=== PATIENT | female | born 1945 | race Caucasian/White ===

== ENCOUNTER 2024-05-26 13:28 | Emergency (ER) | payer MEDICARE, OTHER ==
[~2024-05-26] VITALS: Ht 162.6 cm; Wt 65.8 kg
[2024-05-26] MEDS: acetaMINOPHEN 500 MG TABLET PO ONE (13:53)
--- NOTE | 2024-05-26 14:55 | HMCIMG ---
Exam Type: FOREARM 2VWS LT, HAND 3+VWS LT Clinical Information: Pain Comparison: None Findings: There are fractures of the distal radius as well as ulnar styloid process both with dorsal angulation. No other fractures are seen. Degenerative changes of the interphalangeal joints of the hand are seen. IMPRESSION: Wrist fracture.
--- NOTE | 2024-05-26 15:06 | ERN ---
General Chief Complaint: Wrist Pain/Injury Stated Complaint: WRIST PAIN Time Seen by MD: 13:30 Time Seen by Midlevel: 13:32 Source: patient History of Present Illness Initial Comments 78-year-old female presents to the ED due to left wrist pain. Patient reports she was playing pickleball and fell. Denies any head injuries, or further trauma. PMHx HTN, hypercholesterolemia Allergies: Coded Allergies: shellfish derived (Unverified Allergy, Unknown, ANAPHYLAXIS, 05/26/24) Past Medical History Past Medical History: High Cholesterol, Hypertension Past Surgical History: None ROS Dictation Constitutional: Negative for fever,chills, and weight loss Eyes: Negative for injury, pain,redness, and discharge ENT: Negative for injury,pain or swelling Cardiovascular: Negative for chest pain, palpitations, and edema Respiratory: Negative for shortness of breath, cough, and wheezing, Abdomen/GI: Negative for abdominal pain, nausea, vomiting, diarrhea, and constipation Back: Negative for injury and pain : Negative for painful urination, bleeding or discharge MS/Extremity: Positive for left wrist pain Negative for injury and deformity Skin: Negative for rash, and discoloration Neuro: Negative for headache, weakness, numbness, tingling, and seizure Psych: Negative for suicide ideation, homicidal ideation, and hallucinations Physical Exam Physical Exam Dictation General: awake, alert, no acute distress Head/Face: Normocephalic, atraumatic Eyes: PERRL, EOMI, normal conjunctiva Cardiovascular: Normal peripheral perfusion Skin: Warm, dry, normal turgor, no rash MS/Extremity: Pulses equal, no cyanosis, neurovascular intact, limited range of motion of the left wrist restricted by pain, tenderness on palpation of the left wrist Neuro: COAx4, GCS 15, normal sensory, normal gait Psych: Normal behavior, mood, and affect normal Results EKG/XRAY/US/CT/MRI X-RAY Comment REASON: Pain ORDERING PHYSICIAN: JANEEN RIZZO PROCEDURE: HAND 3V LT - HAND 3+VWS LT Exam Type: FOREARM 2VWS LT, HAND 3+VWS LT Clinical Information: Pain Comparison: None Findings: There are fractures of the distal radius as well as ulnar styloid process both with dorsal angulation. No other fractures are seen. Degenerative changes of the interphalangeal joints of the hand are seen. IMPRESSION: Wrist fracture. REASON: Pain ORDERING PHYSICIAN: JANEEN RIZZO PROCEDURE: FORARML - FOREARM 2VWS LT Exam Type: FOREARM 2VWS LT, HAND 3+VWS LT Clinical Information: Pain Comparison: None Findings: There are fractures of the distal radius as well as ulnar styloid process both with dorsal angulation. No other fractures are seen. Degenerative changes of the interphalangeal joints of the hand are seen. IMPRESSION: Wrist fracture. MDM MDM: Differential diagnosis: Fracture, strain, sprain, dislocation Rationale: 78-year-old female presents to the ED due to left wrist pain. Patient reports she was playing pickleball and fell. Denies any head injuries, or further trauma. PMHx HTN, hypercholesterolemia Per physical examination patient has limited range of motion of the left wrist restricted by pain, tenderness to palpation, neurovascularly intact. X-rays of the left forearm indicates fracture of the distal radius and ulnar styloid with dorsal angulation. Patient was placed on a volar splint and referred to follow up with ortho. Advised to follow up with PCP. Return to the ED if any worsening symptoms. Patient verbalized understanding. Stable for discharge. There are no social concerns with this patient. I independently interpreted the test that were performed, results were reviewed by me and considered findings on radiology if ordered. Medical management and examination interpretation discussions were had by me with other qualified healthcare professionals as indicated for the patient's care. ED Course Orders Procedure Category Date Status Time Forearm 2vws Lt RAD 05/26/24 Resulted 13:43 Hand 3+Vws Lt RAD 05/26/24 Resulted 13:43 Acetaminophen 500mg PHA 05/26/24 Complete Tab (Tylenol 500mg T 14:00 Volar Splint [email or web address] 05/26/24 Complete 15:03 Current Medications Medications (Trade) Dose Ordered Sig/Caleb Route PRN Reason Start Time Stop Time Status Last Admin Dose Admin Acetaminophen (TYLenol 500MG TAB) 1,000 mg ONCE ONCE PO 05/26/24 14:00 05/26/24 14:01 DC 05/26/24 13:53 Vital Signs Date Time Temp Pulse Resp B/P (MAP) Pulse Ox O2 Delivery O2 Flow Rate FiO2 05/26/24 15:09 97.2 72 18 121/63 96 Room Air* 0 21 05/26/24 14:43 97.0 78 18 127/67 97 Room Air* 0 21 05/26/24 13:48 97.9 72 20 131/68 97 Room Air* 0 21 05/26/24 13:30 97.5 72 18 137/74 97 Room Air DX & DISP Disposition: Discharge Departure Impression: Primary Impression: Closed left radial fracture Additional Impression: Fracture of ulnar styloid Condition: Stable Additional Instructions: Discharge home. Rest. Follow up with primary care DrPreet in 24 hours. Return to the ER for any acute changes or worsening symptoms. If any medications were prescribed take as directed. Okay to continue home medications unless otherwise discussed during your visit in the emergency room today. Patient was also advised to follow-up with primary care physician in 1 to 2 days for continued monitoring. Referrals: BROCK KEATING MD (PCP) NORRIS AGUILAR MD, MICHAEL D MD TUCKER, WILLIAM A DO I participated in the following activities of this patient's care: For this patient encounter, I reviewed the PA or CONSTRUCTION RECR[employer]ITER documentation, treatment plan, and medical decision making. I did not have [id number] time with this patient. I will sign as the reviewing DrPreet And agree with the treatment plan and disposition. JANEEN RIZZO May 26, 2024 15:06
[2024-05-26 15:09] VITALS: BP 121/63; PULSE 72; RESP 18; TEMP 97.1; O2SAT 96
== END 2024-05-26 15:33 | disposition home or self-care (01) ==
LOC: EDH 13:28
DX: S52.502A Unspecified fracture of the lower end of left radius, initial encounter for closed fracture (principal); S52.202A Unspecified fracture of shaft of left ulna, initial encounter for closed fracture; E78.00 Pure hypercholesterolemia, unspecified; I10 Essential (primary) hypertension; W18.39XA Other fall on same level, initial encounter; Y93.89 Activity, other specified; Y92.89 Other specified places as the place of occurrence of the external cause; Y99.8 Other external cause status
CPT/HCPCS: 29125; 73090; 73130; 99284